=== PATIENT | male | born 1950 | race Caucasian/White ===

== ENCOUNTER → 2018-06-27 | Outpatient (CLI) | payer OTHER | LOC: BMCIMAGING 15:38 | PROVIDERS: ATTEND Family Medicine | DX: S69.91XA Unspecified injury of right wrist, hand and finger(s), initial encounter (principal) ==

== ENCOUNTER → 2018-07-02 | Outpatient (CLI) | payer OTHER | LOC: BMCIMAGING 13:06 | PROVIDERS: ATTEND Orthopaedic Surgery Hand Surgery | DX: M18.12 Unilateral primary osteoarthritis of first carpometacarpal joint, left hand (principal) ==

== ENCOUNTER → 2019-02-10 | Outpatient (CLI) | payer OTHER | LOC: BMCIMAGING 11:22 | PROVIDERS: ATTEND Internal Medicine Rheumatology | DX: R76.11 Nonspecific reaction to tuberculin skin test without active tuberculosis (principal); M48.14 Ankylosing hyperostosis [Forestier], thoracic region ==